=== PATIENT | female | born 1935 | race African-American/Black ===

== ENCOUNTER 2020-09-24 18:12 | Emergency (ER) | payer MEDICARE, SELFPAY ==
[~2020-09-24] VITALS: Ht 172.7 cm; Wt 69.0 kg
[~2020-09-24 18:12] MED LIST: AMLO-258 PO; CLON-592 PO; ESTR0.5T PO; FURO40 PO; GABA-1181 PO; K-TABS PO; LOSA50TA37 PO; OMEP20 PO; PARO10TA89 PO
[2020-09-24] MEDS ORDERED: IOVERSOL 350 MG/ML 100 ML VIAL ONE (18:26)
[2020-09-24] MEDS ORDERED: SODIUM CHLORIDE 0.9% 100 ML ONE (18:26)
[2020-09-24] MEDS ORDERED: LORA-999 PO (18:32)
[2020-09-24] MEDS ORDERED: HYDR10TA31 PO (18:32)
[2020-09-24] MEDS ORDERED: ATRO2DRO PO (18:32)
[2020-09-24] MEDS ORDERED: ACET-3385 PO (18:32)
[2020-09-24] MEDS ORDERED: ONDA-104 PO (18:32)
[2020-09-24] MEDS ORDERED: TRAM50TA4 PO (18:32)
[2020-09-24] MEDS ORDERED: NITR0.4T52 SL (18:32)
[2020-09-24] MEDS ORDERED: SENN8.8S6 PO (18:32)
[2020-09-24] MEDS ORDERED: AMLO-257 PO (18:32)
[2020-09-24] MEDS ORDERED: MORP10DI10 PO (18:32)
[2020-09-24] MEDS ORDERED: CARV12 PO (18:32)
[2020-09-24] MEDS ORDERED: MOM30 PO (18:32)
[2020-09-24] MEDS ORDERED: BUME1TAB34 PO (18:32)
[2020-09-24 19:27] LABS: CALCIUM, TOTAL 7.4 mg/dL (8.8-10.5); CREATININE 1.16 mg/dL (0.60-1.30); POTASSIUM 3.3 mmol/L (3.5-5.1)
[2020-09-24 19:30] LABS: PROTHROMBIN TIME 10.7 SEC (9.4-11.6)
[2020-09-24 19:32] LABS: BASOPHILS % (AUTO) 0.8 % (0.0-2.0); EOSINOPHILS % (AUTO) 1.5 % (1.0-6.0); HEMATOCRIT 41.8 % (36-46); HEMOGLOBIN 13.2 g/dL (12.0-16.0); LYMPHOCYTES % (AUTO) 20.8 % (22.0-44.0); MEAN CORPUSCULAR HEMOGLOBIN 26.9 pg (26.0-34.0); MEAN CORPUSCULAR HGB CONC 31.5 G/dL (31.0-37.0); MEAN CORPUSCULAR VOLUME 85 fL (80-100); MONOCYTES # (AUTO) 0.9 K/uL (0.1-1.0); MONOCYTES % (AUTO) 9.5 % (2.0-9.0); NEUTROPHILS # (AUTO) 6.5 K/uL (1.8-7.7); NEUTROPHILS % (AUTO) 67.4 % (40.0-70.0); RED CELL DISTRIBUTION WIDTH 15.1 % (11.5-14.5)
[2020-09-24 19:33] LABS: ALBUMIN 3.6 g/dL (3.4-5.0); BILIRUBIN,TOTAL 0.5 mg/dL (0.1-1.0); TOTAL PROTEIN, SERUM 8.7 g/dL (6.4-8.2)
[2020-09-24] MEDS ORDERED: LevETIRAcetam 1,000 MG in DEXTROSE 5%-WATER 100 ML IV ONE (19:45)
[2020-09-24 20:46] LABS: COVID AG,FIA SOURCE NASOPHARYNGEAL
[2020-09-24 20:59] LABS: FREE T4 (FREE THYROXINE) 1.09 ng/dL (0.76-1.46); THYROID STIMULATING HORMONE 2.11 uIU/mL (0.36-3.74)
[2020-09-24 21:20] LABS: PLATELET COUNT (AUTO) 99 K/uL (150-450)
[2020-09-24 22:06] LABS: AMPHET/METH SCREEN,URINE NEGATIVE (NEGATIVE); BARBITURATE SCREEN, URINE NEGATIVE (NEGATIVE); BENZODIAZEPINES SCREEN,URINE NEGATIVE (NEGATIVE); CANNABINOID SCREEN,URINE NEGATIVE (NEGATIVE); COCAINE SCREEN,URINE NEGATIVE (NEGATIVE); METHADONE SCREEN, URINE NEGATIVE (NEGATIVE); OPIATE SCREEN,URINE POSITIVE (NEGATIVE)
[2020-09-24 22:10] LABS: APPEARANCE,URINE CLOUDY (CLEAR); BILIRUBIN,URINE NEGATIVE (NEGATIVE); GLUCOSE, URINE (UA) NEGATIVE (NEGATIVE); KETONES,URINE NEGATIVE (NEGATIVE); LEUKOCYTE ESTERASE ,URINE MODERATE (NEGATIVE); NITRATE,URINE POSITIVE (NEGATIVE); OCCULT BLOOD,URINE MODERATE (NEGATIVE); PH,URINE 5.5 (5.0-8.0); PROTEIN,URINE POS 1+ (NEGATIVE); UROBILINOGEN,URINE 0.2 mg/dL (<=1.0)
[2020-09-24 22:15] LABS: PHENCYCLIDINE SCREEN,URINE NEGATIVE (NEGATIVE)
[2020-09-24 22:32] LABS: BACTERIA,URINE Many /HPF (None Seen); RBC,URINE 0-2 /HPF (0-2); SQUAMOUS EPITHELIAL CELL,UR Moderate /LPF (None Seen); WBC,URINE 51-100 /HPF (0-5)
[2020-09-24] MEDS ORDERED: POTASSIUM CHLORIDE 20 MEQ ER TABLET PO ONE (23:45)
[2020-09-25] VITALS: BP 136/72
== END 2020-09-25 00:52 | disposition home or self-care (01) ==
LOC: EMS 18:14
DX: N39.0 Urinary tract infection, site not specified (principal); R77.8 Other specified abnormalities of plasma proteins; E87.6 Hypokalemia; R56.9 Unspecified convulsions; I10 Essential (primary) hypertension; F11.90 Opioid use, unspecified, uncomplicated; Z20.822 Contact with and (suspected) exposure to COVID-19; Z91.14 Patient's other noncompliance with medication regimen; Z88.0 Allergy status to penicillin
CPT/HCPCS: 36415; 70450; 70496; 71045; 80053; 80307; 81001; 82550; 82962; 83605; 84439; 84443; 84484; 85025; 85610; 85730; 86850; 86900; 86901; 87040; 87077; 87086; 87186; 87426; 93005; 96365; 99284; J0712; J7050; J7060; Q9967

== ENCOUNTER 2021-07-16 09:52 | Emergency (ER) | payer MEDICARE ==
[~2021-07-16] VITALS: Ht 147.3 cm; Wt 60.9 kg
[~2021-07-16 09:52] MED LIST changes: +ACET-3385 PO; +AMLO-257 PO; -AMLO-258 PO; +ATRO2DRO PO; +BUME1TAB34 PO; +CARV12 PO; -CLON-592 PO; -ESTR0.5T PO; -FURO40 PO; -GABA-1181 PO; +HYDR10TA31 PO; -K-TABS PO; +LORA-999 PO; -LOSA50TA37 PO; +MOM30 PO; +MORP10SY6 PO; +NITR0.4T52 SL; -OMEP20 PO; +ONDA-104 PO; -PARO10TA89 PO; +SENN8.8S18 PO; +TRAM50TA4 PO
[2021-07-16] MEDS ORDERED: MAGNESIUM CITRATE 300 ML ORAL SOLUTION PO ONE (10:15)
[2021-07-16] MEDS ORDERED: HydrALAZINE HCL 10 MG TABLET PO ONE (10:15)
[2021-07-16] MEDS ORDERED: BUMETANIDE 1 MG TABLET PO ONE (10:15)
[2021-07-16 13:20] LABS: APPEARANCE,URINE CLEAR (CLEAR); BILIRUBIN,URINE NEGATIVE (NEGATIVE); GLUCOSE, URINE (UA) NEGATIVE (NEGATIVE); KETONES,URINE 15 mg/dL (NEGATIVE); LEUKOCYTE ESTERASE ,URINE NEGATIVE (NEGATIVE); NITRATE,URINE NEGATIVE (NEGATIVE); OCCULT BLOOD,URINE TRACE (NEGATIVE); PROTEIN,URINE NEGATIVE (NEGATIVE); UROBILINOGEN,URINE 0.2 mg/dL (<=1.0)
[2021-07-16 13:42] LABS: BACTERIA,URINE None Seen /HPF (None Seen); RBC,URINE 0-2 /HPF (0-2); WBC,URINE None Seen /HPF (0-5)
[2021-07-16 13:46] VITALS: BP 183/93
== END 2021-07-16 16:27 | disposition home or self-care (01) ==
LOC: EMS 09:56
DX: K59.00 Constipation, unspecified (principal); R33.9 Retention of urine, unspecified; I10 Essential (primary) hypertension; F14.90 Cocaine use, unspecified, uncomplicated; Z88.0 Allergy status to penicillin; Z88.6 Allergy status to analgesic agent
CPT/HCPCS: 81001; 99283